=== PATIENT | female | born 1950 | race Caucasian/White ===

== ENCOUNTER 2022-12-21 10:43 | Observation (INO) ==
--- NOTE | 2022-11-23 10:37 | PAT Medication Instructions ---
Medication Instructions Date of Service November 23, 2022 Home Medications allopurinol 300 mg tablet 300 mg PO HS aspirin 81 mg tablet,delayed release (Enteric Coated Aspirin) 81 mg PO HS atorvastatin 20 mg tablet (Lipitor) 20 mg PO QAM bisoprolol fumarate 5 mg tablet 5 mg PO QAM calcipotriene 0.005 %-betamethasone 0.064 % topical foam (Enstilar) 1 applic topical DAILY cetirizine 10 mg tablet (Zyrtec) 10 mg PO HS clobetasol 0.05 % topical cream 1 applic topical DAILY fexofenadine 180 mg tablet 180 mg PO QAM hydroxychloroquine 200 mg tablet 200 mg PO QPM levothyroxine 88 mcg tablet 88 mcg PO QAM lisinopril 40 mg tablet 40 mg PO QPM magnesium oxide 400 mg PO QAM omeprazole 20 mg tablet,delayed release 20 mg PO QAM triamcinolone acetonide 0.1 % topical cream 1 applic topical DAILY triamterene 37.5 mg-hydrochlorothiazide 25 mg tablet 1 tab PO HS ASK your prescriber and surgeon aspirin 81 mg tablet,delayed release (Enteric Coated Aspirin) 81 mg PO HS hydroxychloroquine 200 mg tablet 200 mg PO QPM STOP taking 24 hours before surgery calcipotriene 0.005 %-betamethasone 0.064 % topical foam (Enstilar) 1 applic topical DAILY clobetasol 0.05 % topical cream 1 applic topical DAILY triamcinolone acetonide 0.1 % topical cream 1 applic topical DAILY DO NOT take the morning of surgery magnesium oxide 400 mg PO QAM fexofenadine 180 mg tablet 180 mg PO QAM Take morning of surgery With a small sip of water, OTHERWISE NOTHING TO EAT OR DRINK AFTER MIDNIGHT: atorvastatin 20 mg tablet (Lipitor) 20 mg PO QAM bisoprolol fumarate 5 mg tablet 5 mg PO QAM levothyroxine 88 mcg tablet 88 mcg PO QAM omeprazole 20 mg tablet,delayed release 20 mg PO QAM Take evening before surgery allopurinol 300 mg tablet 300 mg PO HS cetirizine 10 mg tablet (Zyrtec) 10 mg PO HS lisinopril 40 mg tablet 40 mg PO QPM triamterene 37.5 mg-hydrochlorothiazide 25 mg tablet 1 tab PO HS Other Notes If you have any questions please call us at [phone] or [phone] or [phone] or [phone]
--- NOTE | 2022-11-25 13:03 | Anesthesiology Consultation ---
Date of Service November 25, 2022 Assessment & Plan (1) Encounter for pre-operative examination: - will request carotid imaging and holter monitor [facility] office per pt. - cardiology clearance 11/21/22: "...low to intermediate cardiac risk..." - cardiology office visit 09/19/22: "...cardiac evaluation...nonprogressive functional class II shortness of breath and fatigue...increasing diaphoresis and also occasional weakness episodes with dizziness...echocardiogram re aortic stenosis, SOB. Carotid doppler. Holter monitor..." Chart Review Chart Review: Pending: Refer to Additional Notes / Consult section and Patient seen in Pre Admission Testing Teaching & Discussion Pre-Anesthesia Teaching/Discussion Notes: Instructed NPO after midnight before surgery, except medications with 15 cc of water. Medication instructions provided according to the PAT guidelines. History Surgery Operation Date: 12/21/22 10:15 Proposed Procedures p Right Total Shoulder Arthroplasty Excision of Loose Bodies, Biceps Tenodesis - Sean Amezquita MD Height/Weight Height: 5 ft 4 in Weight: 100.3 kg Allergies Allergy/AdvReac Type Severity Reaction Status Date / Time apremilast [From Otezla] Allergy Intermediate caused Verified 11/17/22 12:49 stomach ulcers aspartame Allergy Intermediate MIGRAINE, Verified 11/17/22 12:46 HIGH BP diphenhydramine Allergy Intermediate Hives Verified 11/17/22 12:49 [From Benadryl Allergy] latex Allergy Intermediate rash over Verified 11/17/22 12:49 trunk of body linda hose Allergy Intermediate rash over Uncoded 11/17/22 12:49 trunk of body Medications Home Medications Medication Instructions Recorded Confirmed Last Taken allopurinol 300 mg tablet 300 mg PO HS 11/17/22 11/17/22 Unknown aspirin 81 mg tablet,delayed 81 mg PO HS 11/17/22 11/17/22 Unknown release (Enteric Coated Aspirin) atorvastatin 20 mg tablet (Lipitor) 20 mg PO QAM 11/17/22 11/17/22 Unknown bisoprolol fumarate 5 mg tablet 5 mg PO QAM 11/17/22 11/17/22 Unknown calcipotriene 0.005 1 applic topical DAILY 11/17/22 11/17/22 Unknown %-betamethasone 0.064 % topical foam (Enstilar) cetirizine 10 mg tablet (Zyrtec) 10 mg PO HS 11/17/22 11/17/22 Unknown clobetasol 0.05 % topical cream 1 applic topical DAILY 11/17/22 11/17/22 Unknown fexofenadine 180 mg tablet 180 mg PO QAM 11/17/22 11/17/22 Unknown hydroxychloroquine 200 mg tablet 200 mg PO QPM 11/17/22 11/17/22 Unknown levothyroxine 88 mcg tablet 88 mcg PO QAM 11/17/22 11/17/22 Unknown lisinopril 40 mg tablet 40 mg PO QPM 11/17/22 11/17/22 Unknown magnesium oxide 400 mg PO QAM 11/17/22 11/17/22 Unknown omeprazole 20 mg tablet,delayed 20 mg PO QAM 11/17/22 11/17/22 Unknown release triamcinolone acetonide 0.1 % 1 applic topical DAILY 11/17/22 11/17/22 Unknown topical cream triamterene 37.5 1 tab PO HS 11/17/22 11/17/22 Unknown mg-hydrochlorothiazide 25 mg tablet cyclosporine 0.05 % eye drops in a drp 11/25/22 Unknown dropperette (Restasis) etodolac 400 mg tablet 400 mg PO Q8H PRN Pain 11/25/22 11/25/22 Unknown hydrocortisone 2.5 % topical 1 applic topical BID PRN psoriasis 11/25/22 11/25/22 Unknown ointment Past Medical History Medical History (Updated 11/25/22 @ 13:25 by Lakeshia Villagran PA-C) CAD (coronary artery disease) nonobstructive on 05/2022 cath Deafness in right ear Esophageal polyp s/p multiple EGDs with removal, last in 2021, pt states GI advised could have next EGD in 2023 GERD (gastroesophageal reflux disease) rare, controlled and stable per pt Gout 1+ yr ago History of benign breast biopsy History of COVID-2019--mild symptoms, resolved Hyperlipidemia Hypertension controlled, stable per pt Hypothyroidism Leaky heart valve per pt is very small--follows with Dr. Hayes Migraine stable per pt Nausea and vomiting after administration of anesthetic agent denies needing scop patch Psoriatic arthritis Sleep apnea CPAP-compliant Patient denies h/o stroke, seizures, heart attack, heart failure, DM, blood clots/DVTs or blood transfusions. Exercise / Class Metabolic Activity II 4-5 Yardwork/Stairs/Walk up hill (denies chest discomfort or shortness of breath with 1 FOS) Past Family History Family History Other No family history of adverse response to anesthesia Past Surgical History Surgical History (Updated 11/25/22 @ 13:18 by Lakeshia Villagran PA-C) History of abdominal surgery 2010 removal of large polyp History of bilateral cataract extraction 2008 History of brain surgery 2010 @ [facility]--acoustic neuroma and removal of nerve on right side by ear History of cardiac cath x2--2016 @ [facility]/2022 @ [facility]--no stents placed History of cholecystectomy 2016 History of colonoscopy History of esophagogastroduodenoscopy (EGD) multiple History of hernia repair 2014 History of tonsillectomy 1961 History of tooth extraction History of total hysterectomy with bilateral salpingo-oophorectomy (BSO) 1988 History of total right knee replacement (TKR) 2013 History of total thyroidectomy 2021 @ [facility]--multiple large goiters Past Anesthesia History No Hx of Anesthesia Complications and No Family Hx of Anesthesia Complications History of PONV No Hx of Motion Sickness and History of PONV (denies needing scop patch) Social History Smoking Status: Never smoker Do You Dip or Chew Tobacco: No Hx Alcohol Use: No Hx Substance Use: No substance use type: does not use Review of Systems Patient denies chest pain, shortness of breath, dyspnea on exertion, reflux, fever, chills, cough, wheezing, or palpitations. Physical Exam Vital Signs Vitals BP 123/74 P 57 TEMP 97.8 SP02 94% on RA RESP 18 Physical Patient resting comfortably in chair in no acute distress, alert and oriented, responding appropriately throughout visit Full cervical extension range of motion without pain TMD 3.5 finger breadths Mallampati Score 2 Dentition: upper partial, denies chipped or loose teeth, caps/crowns, implants or bridges Lungs: normal respiratory effort. Good air movement, clear throughout to auscultation, no adventitious breath sounds Cardiac: regular rate and rhythm, 2/6 systolic murmur Carotid arteries: negative bruit bilat Lab Results Anesthesia Preop Results Results Anesthesia Widget: WBC 6.41 K/ul (4.8-10.8) 11/25/22 Hgb 13.2 g/dl (12.0-16.0) 11/25/22 Hct 37.7 % (37.0-47.0) 11/25/22 Plt 217 K/uL (130-400) 11/25/22 Na 140 mmol/L (136-145) 11/25/22 K 4.0 mmol/L (3.5-5.1) 11/25/22 Cl 104 mmol/L (98-107) 11/25/22 CO2 30 mmol/L (21-32) 11/25/22 BUN 20 mg/dl (6-23) 11/25/22 Creat 0.91 mg/dl (0.6-1.2) 11/25/22 Glucose Level 81 mg/dl (70-99(Fasting)) 11/25/22 PT 11.1 Seconds (9.0-12.0) 11/25/22 PTT 26.6 Seconds (21.0-31.0) 11/25/22 INR 1.0 (0.9-1.1) 11/25/22 Urine Color Yellow 11/25/22 Urine Appearance Clear (Clear) 11/25/22 Urine pH 6.5 (4.5-7.5) 11/25/22 Urine Specific [place] 1.008 (1.000-1.030) 11/25/22 Urine Protein Negative (Negative) 11/25/22 Urine Glucose (UA) Negative (Negative) 11/25/22 Urine Ketones Negative (Negative) 11/25/22 Urine Blood Negative (Negative) 11/25/22 Urine Nitrite Negative (Negative) 11/25/22 Urine Bilirubin Negative (Negative) 11/25/22 Urine Urobilinogen Negative (Negative) 11/25/22 Urine Leukocyte Esterase Negative (Negative) 11/25/22 Blood Type A Positive 11/25/22 Antibody Screen NEGATIVE 11/25/22 Testing Electrocardiogram Date: 09/19/22 SR, rate 70 bpm (provider notation on EKG) Extensive anterior infarct Inferior infarct Low QRS voltage in precordial leads Chest X-Ray Date: 11/25/22 Mild cardiomegaly. Otherwise, no acute process within the chest Echocardiogram Date: 02/22/22 EF 60-65% Normal LV wall motion Mild cLVH Mild to moderate mitral regurgitation Mild mitral stenosis Grade II diastolic dysfunction Mild pulmonic regurgitation Stress Test Date: 04/13/22 Lateral wall ischemia Cardiac Catheterization Date: 05/20/22 Left main: minimal luminal irregularities LAD: minimal luminal irregularities LCx: minimal luminal irregularities RCA: 30% stenosis Nonobstructive epicardial coronary artery disease
--- NOTE | 2022-12-20 12:15 | History & Physical Report ---
Date of Service December 20, 2022 Assessment & Plan (1) Primary osteoarthritis, right shoulder: Plan: Treatment options discussed with patient. She has failed conservative measures and would like to proceed with surgery. Risks, benefits and alternatives to surgery including but not limited to infection, DVT, pain, stiffness, need for revision surgery, damage to blood vessels, damage to nerves, PE, , were discussed with the patient and they wish to proceed. Plan for right total shoulder arthroplasty, biceps tenodesis, excision loose bodies. Surgery scheduled for 12/21/[address] Amezquita at [facility]. All questions answered. Patient will follow up post op. History of Present Illness Chief Complaint: Right knee Primary Care Provider: Lily Dallas DO 72yo female with PMHx significant for HTN, KELLEE, hypothyroidism, CAD who presents with ongoing right shoulder pain. Pain is interfering with her daily activities. She has failed conservative measures and would like to proceed with surgery. Patient denies headaches, sweats, fevers, chills, double vision, blurred vision, cough, sore throat, dysphagia, chest pain, sob, wheezing, n/v/d/c, numbness, tingling, fatigue, urinary symptoms, mood disorders. ROS positive for right shoulder pain and stiffness. Allergies Allergy/AdvReac Type Severity Reaction Status Date / Time apremilast [From Otezla] Allergy Intermediate caused Verified 11/17/22 12:49 stomach ulcers aspartame Allergy Intermediate MIGRAINE, Verified 11/17/22 12:46 HIGH BP diphenhydramine Allergy Intermediate Hives Verified 11/17/22 12:49 [From Benadryl Allergy] latex Allergy Intermediate rash over Verified 11/17/22 12:49 trunk of body linda hose Allergy Intermediate rash over Uncoded 11/17/22 12:49 trunk of body Home Medications Medication Instructions Recorded Confirmed Type allopurinol 300 mg tablet 300 mg PO HS 11/17/22 11/17/22 History aspirin 81 mg tablet,delayed 81 mg PO HS 11/17/22 11/17/22 History release (Enteric Coated Aspirin) atorvastatin 20 mg tablet (Lipitor) 20 mg PO QAM 11/17/22 11/17/22 History bisoprolol fumarate 5 mg tablet 5 mg PO QAM 11/17/22 11/17/22 History calcipotriene 0.005 1 applic topical DAILY 11/17/22 11/17/22 History %-betamethasone 0.064 % topical foam (Enstilar) cetirizine 10 mg tablet (Zyrtec) 10 mg PO HS 11/17/22 11/17/22 History clobetasol 0.05 % topical cream 1 applic topical DAILY 11/17/22 11/17/22 History fexofenadine 180 mg tablet 180 mg PO QAM 11/17/22 11/17/22 History hydroxychloroquine 200 mg tablet 200 mg PO QPM 11/17/22 11/17/22 History levothyroxine 88 mcg tablet 88 mcg PO QAM 11/17/22 11/17/22 History lisinopril 40 mg tablet 40 mg PO QPM 11/17/22 11/17/22 History magnesium oxide 400 mg PO QAM 11/17/22 11/17/22 History omeprazole 20 mg tablet,delayed 20 mg PO QAM 11/17/22 11/17/22 History release triamcinolone acetonide 0.1 % 1 applic topical DAILY 11/17/22 11/17/22 History topical cream triamterene 37.5 1 tab PO HS 11/17/22 11/17/22 History mg-hydrochlorothiazide 25 mg tablet cyclosporine 0.05 % eye drops in a drp 11/25/22 History dropperette (Restasis) etodolac 400 mg tablet 400 mg PO Q8H PRN Pain 11/25/22 11/25/22 History hydrocortisone 2.5 % topical 1 applic topical BID PRN psoriasis 11/25/22 11/25/22 History ointment Past Med/Surg History Medical History (Updated 12/20/22 @ 12:28 by Terry Tran PA-C) GERD (gastroesophageal reflux disease) rare, controlled and stable per pt Esophageal polyp s/p multiple EGDs with removal, last in 2021, pt states GI advised could have next EGD in 2023 CAD (coronary artery disease) nonobstructive on 05/2022 cath Nausea and vomiting after administration of anesthetic agent denies needing scop patch History of benign breast biopsy Gout 1+ yr ago Psoriatic arthritis Hypothyroidism Deafness in right ear Migraine stable per pt Leaky heart valve per pt is very small--follows with Dr. Hayes Hypertension controlled, stable per pt Hyperlipidemia History of COVID-2019--mild symptoms, resolved Sleep apnea CPAP-compliant Surgical History (Updated 11/25/22 @ 13:18 by Lakeshia Villagran PA-C) History of total hysterectomy with bilateral salpingo-oophorectomy (BSO) 1988 History of total right knee replacement (TKR) 2013 History of colonoscopy History of esophagogastroduodenoscopy (EGD) multiple History of hernia repair 2015 History of cholecystectomy 2016 History of tooth extraction History of tonsillectomy 1961 History of total thyroidectomy 2021 @ [facility] [place], operated by [facility]--multiple large goiters History of bilateral cataract extraction 2008 History of abdominal surgery 2010 removal of large polyp History of brain surgery 2010 @ [facility]--acoustic neuroma and removal of nerve on right side by ear History of cardiac cath x2--2016 @ [facility]/2022 @ [facility]--no stents placed Family History Other No family history of adverse response to anesthesia Social History Smoking Status: Never smoker Second Hand Exposure: No; Do You Dip or Chew Tobacco: No; Tobacco Cessation Education Requested by Patient: No Hx Alcohol Use: No Hx Substance Use: No Preferred Language: Khmer Communication Ability: Effective Director Clinical Pharmacology Required: No Beliefs That Will Affect Care: None Current Living Situation: Spouse Other Information That Helps Us Care for You: No Feels Safe at Home: Yes Safety Concerns: Feels Safe At This Time Assistive Devices: CPAP, Denture - Upper and Glasses Assistive Devices Comment: partial upper Review of Systems All systems reviewed & are unremarkable except as noted in HPI & below Physical Exam Constitutional: well developed and well nourished; no acute distress Eyes: PERRL, conjunctivae normal, anicteric sclerae ENMT: external ear and nose normal, oropharynx normal Neck: trachea midline, no thyromegaly Respiratory: normal respiratory effort, lungs clear to auscultation Cardiovascular: RRR, no murmur, no edema Musculoskeletal: Right shoulder: Crepitation with ROM. Diffuse tenderness. Positive impingement signs. Active painful ROM. FF to 120 degrees, abduction to 80 degrees, ER to 30 degrees. Mild weakness with strength testing. Skin: no rashes, warm and dry Neurologic: patellar DTR's 2+ bilat, sensation intact Psychiatric: A+Ox3, euthymic affect Results & Data Diagnostic Findings Right shoulder radiographs demonstrate endstage osteoarthritis bone on bone GH joint. There is a large inferior osteophyte humeral head. Likely osteochondral loose bodies anteriorly. MRI demonstrates an intact rotator cuff
[~2022-12-21 10:43] MED LIST: ACETAMINOPHEN 500 MG TAB PO SCH; BUPIVACAINE 0.5 % 5 MG/1 ML PF 10ML VIAL ONE; CeleBREX 200 MG CAP PO SCH; DEXAMETHASONE SOD INJ 4 MG/ML VIAL ONE; FAMOTIDINE 20 MG TAB PO SCH; GABAPENTIN 300 MG CAP PO SCH; LIDOCAINE 2% 2 ML VIAL/AMP(20MG/ML) INFIL ONE; LR 15ML/HR IV SCH; LR 60ML/HR IV SCH; MIDAZOLAM HCL 1 MG/ML 2ML VIAL ONE; ONDANSETRON INJ 2 MG/ML 2 ML VIAL ONE; PROPOFOL IV EMULSION 10 MG/ML 20 ML VIAL IV ONE; ROCURONIUM BROMIDE 10 MG/ML 5 ML VIAL IV ONE; TRANEXAMIC ACID 1,000 MG **IV Intra-op IV SCH; TRANEXAMIC ACID 1,000 MG **IV Pre-op IV SCH; ceFAZolin 2000MG 2,000 MG/15 ML SYR IV SCH; dexAMETHasone 4 MG TAB PO SCH; fentaNYL citrate PF 100 MCG/2 ML VIAL ONE
[2022-12-21] MEDS ORDERED: EpINEphrine HCL INJ 1 MG/ML 1ML SYRINGE ONE (12:29)
--- NOTE | 2022-12-21 12:29 | History & Physical Bridge Note ---
Date of Service December 21, 2022 History & Physical Bridge Note I have examined the patient, reviewed the History & Physical and in the interval since the performance of the History & Physical I have noted the following changes of clinical significance: no changes noted
[2022-12-21] MEDS ORDERED: ATROPINE SULFATE 0.1 MG/ML 10ML SYR IV PRN (13:08)
[2022-12-21] MEDS ORDERED: ONDANSETRON INJ 2 MG/ML 2 ML VIAL IV PRN ×2 (13:08→16:50)
[2022-12-21] MEDS ORDERED: fentaNYL citrate PF 100 MCG/2 ML VIAL IV PRN (13:08)
[2022-12-21] MEDS ORDERED: HYDROmorphone INJ 2 MG/ML SYR/VIAL IV PRN (13:08)
[2022-12-21] MEDS ORDERED: PROMETHAZINE HCL 12.5 MG in SODIUM CHLORIDE 0.9% 50 ML IV PRN (13:08)
[2022-12-21] MEDS ORDERED: ePHEDrine sulfate 50 MG/ML AMP IV PRN (13:08)
[2022-12-21] MEDS ORDERED: ePHEDrine sulfate 50 MG/5 ML SYR ONE (13:17)
[2022-12-21] MEDS ORDERED: ROCURONIUM BROMIDE 10 MG/ML 5 ML VIAL IV ONE (13:53)
[2022-12-21] MEDS ORDERED: SUGAMMADEX SODIUM 200 MG/2 ML VIAL IV ONE (13:54)
--- NOTE | 2022-12-21 15:50 | Operative Report ---
Post Operative Report Pre & Post Diagnosis Operation Date: 12/21/22 12:35 Pre-Op Diagnosis: Right Shoulder Osteoarthritis Glenohumeral joint, multiple loose bodies, ruptured biceps tendon. Post-Op Diagnosis: Right Shoulder Osteoarthritis Glenohumeral joint, multiple loose bodies, ruptured biceps tendon. I identified the patient and participated in the time-out.: Yes Procedure Operation Date: 12/21/22 12:35 Actual Procedures p Right Total Shoulder Arthroplasty, Excision of Mulitple Loose Bodies(Right) - Sean Amezquita MD Surgeon Sean Amezquita MD Emergency Management Program Specialist Terry ANDREWS Estimated Blood Loss 50 Findings Consistent with Post-Op Diagnosis Specimens bone cut humeral head and loose bodies Drains 2 Hemovac Anesthesia Type General Regional Complications none Disposition Disposition: Recovery Room Indications 72-year-old female with chronic progressive osteoarthritis in her right shoulder. Radiographs demonstrate she has [id number] in the glenohumeral joint with bone loss and massive osteophytes with multiple loose bodies including loose bodies in the biceps tendon sheath. Chronic ruptured biceps tendon and intact rotator cuff per MRI CT scan including blueprint preoperative templating with custom PSI surgical guide Description of Procedure the patient was taken to the operating room and anesthetized under a general and regional block anesthesia. A towel roll was placed under the medial border of the scapula of the Right shoulder. The patient's head was placed on a foam headrest and protective eyewear was placed and the extremities were well padded. The arm was draped free in order to manipulate the shoulder as necessary. The shoulder exam demonstrated 0 external rotation, 80 degrees AB duction, 120 degrees forward flexion. She has moderate obesity of the Shoulder and arm. . The shoulder was sterilely prepped and draped in the usual sterile fashion. An anterior deltopectoral approach was performed. A longitudinal incision was made in the interval. The skin was incised sharply and subcutaneous tissues dissected down to the fascia. The cephalic vein was identified and retracted laterally with the deltoid. Any crossing veins were tied off with silk ties and divided. The clavipectoral fascia was divided at the lateral margin of the conjoined tendon and divided up to the level of the coracoacromial ligament which was preserved. The upper 1 cm of the pectoralis was released for inferior exposure. The biceps tendon findings demonstrated chronically ruptured biceps t endon with multiple large loose bodies in the biceps tendon sheath that were irregular in shape. These were all excised along with the scarred tenosynovium. . The rotator cuff tendon findings demonstrated Intact rotator cuff all tendon groups. Bulging rotator interval due to fluid collection and loose bodies there and inferior prominence due to the massive osteophyte underlying the subscapular is muscle . The circumflex vessels were identified and tied off with silk ties and divided laterally. The fibers and subscapularis were split longitudinally at the level of the circumflex vessels down to the capsule and then reflected off the inferior capsule using a Kitner elevator. The axillary nerve was identified with a tug test and protected with a blunt Amy retractor. The rotator interval was opened up and extended down to the glenoid. multiple loose bodies removed from the interval and the capsule inner surface of the subscapularis tendon. The subscapularis tendon was taken down with a trans- tendinous incision leaving a cuff of tissue for repair on the lesser tuberosity. The incision was carried down through the tendon and the capsule and a #1 Vicryl suture was placed into the free end of the subscapularis tendon. The capsule was subperiosteally dissected off the inferior neck of the humerus exposing the humeral osteophytes which demonstrated Massive irregular osteoph ytes with multiple loose bodies. Humeral head was flattened with eburnated bone completely no articular cartilage and some bone loss. The osteophytes were excised with an artist chisel and a rongeur Along with more loose bodies.. The capsular release along the inferior neck of the humerus was completed. The humerus was then retracted posterior to the glenoid with a Fukuda retractor. The remainder of the biceps tendon and labrum were resected. The glenoid findings demonstrated Type A concentric wear pattern with some bone loss. Complete eburnation of the glenoid with no articular cartilage remaining and degenerative labrum and large calcified posterior superior glenoid labrum calcifications and multiple loose bodies in the capsular tissue adjacent to the labrum. The labrum was resected along with the loose bodies and I did an anterior inferior and posterior inferior release with electrocautery on bone and a Albright elevator with the axillary nerve continuing to be protected with the blunt Hohmann retractor inferiorly. the large calcified posterior superior labrum fragments were removed. When the releases were completed and the humeral head was exposed with some extension and external rotation and in anatomic head cut was made using the oscillating saw. The Tornier ascend flex PTC standard stem total shoulder arthroplasty was used including the Cortiloc glenoid compo nent. Attention was first taken to preparation of the humeral shaft. A centralizing awl was used followed by broaches up to the appropriate size. The trial broach was left in place and a cut protector was placed. The humerus was then retracted posterior to the glenoid using a Bankart retractor anteriorly and blunt Amy and posterior Tornier glenoid retractor. the custom guide was positioned and the central Smooth pin was placed. The glenoid reamer was used over the pin for the chosen small 40 radius implant. the central drill widened and the guide for the 3 peripheral peg holes was placed in the peg holes were drilled and a trial component was placed with a tight fit. The trial was removed and the glenoid was irrigated with pulsatile lavage antibiotic solution and the drill holes were dried and packed with epinephrine-soaked tampons for hemostasis. The Palacos G cement was vacuum mixed. The final component, 40 radius Cortiloc small polyethylene glenoid component was cemented into position and held in position with pressure until the cement cured. A humeral head trial was placed. A trial reduction was performed and the shoulder was stable. The trial was removed and the humerus and canal were irrigated with saline solution . 3 drill holes were made into the hard bone in the bicipital groove lateral to the lesser tuberosity and 3 #5 FiberWire transosseous sutures were placed for repair of the subscapularis with Artem -Daniel suture technique. After further irrigation of the canal and the final components were assembled. The final components were the 50 x 19 high offset humeral head assembled to the 4 C standard PTC ascend flex stem . The implant was then impacted into the humerus with a tight press-fit. The humerus was reduced to the glenoid and stability verified. The subscapularis was repaired with the #5 FiberWire sutures in a Artem-Daniel suture technique and lateral row fixation with [id number] #2 FiberWire in the soft tissue. The rotator interval was closed and maximal external rotation. The pectoralis was then closed with [id number] #2 FiberWire suture. 2 Hemovac drains were placed. The deltopectoral interval was closed with [id number] #1 Vicryl sutures. The subcutaneous tissues were closed with interrupted 2-0 Vicryl and the skin was closed with dalia and a sterile dressing was applied. The patient tolerated the procedure well. Terry ANDREWS, My physician senior administrative assistant, assisted in soft tissue retraction instrument management suture management and assisted in the subcutaneous and skin closure and will participate in the postoperative care the patient. I attest to the content of the Intraoperative Record and any orders documented therein. Any exceptions are noted below.
--- NOTE | 2022-12-21 16:31 | XRay Report ---
XR shoulder RT min 2V routine HISTORY: 72 years-old Female Post shoulder surgery COMPARISON: Chest 11/25/2022 TECHNIQUE: 2 views of the right shoulder FINDINGS: Satisfactory alignment of the shoulder arthroplasty. Overlying skin dalia with expected postoperati ve soft tissue swelling and deep tissue air. Surgical drainage catheter. No acute fracture, dislocati on or unexpected opaque foreign body. The lung wells appear clear. IMPRESSION: Right shoulder arthroplasty with expected postoperative changes. ACT 112: Negative or not required by law. The above report was generated using voice recognition software. It may contain grammatical, syntax o r spelling errors. Electronically signed by: Carlos Root M.D. 12/21/2022 4:30 PM
--- NOTE | 2022-12-21 16:37 | Anesthesiology Progress Note ---
Date of Service December 21, 2022 Anesthesia Post Procedure Vital Signs Vital Signs: Temp Pulse Pulse Resp BP Pulse Ox O2 Del Method 12/21/22 16:30 36.5 C 72 20 144/62 H 94 Nasal Cannula 12/21/22 16:20 73 20 147/74 H 95 Nasal Cannula 12/21/22 16:10 76 20 154/83 H 94 Oxymask 12/21/22 16:00 76 20 155/65 H 94 Oxymask 12/21/22 15:50 36.1 C L 79 18 182/89 H 94 Oxymask 12/21/22 11:12 36.5 C 63 18 156/79 H 98 Room Air O2 Flow Rate 12/21/22 16:30 3 12/21/22 16:20 4 12/21/22 16:10 6 12/21/22 16:00 6 12/21/22 15:50 6 12/21/22 11:12 Pain Intensity Right Shoulder: Pain Intensity: 3 Transfer of Care Handoff Completed per policy Notes Mental Status: alert / awake / arousable Patient Amnestic to Procedure: Yes Nausea / Vomiting: adequately controlled Pain: adequately controlled Airway Patency, RR, SpO2: stable & adequate BP & HR: stable & adequate Hydration State: stable & adequate Anesthetic Complications: no major complications apparent
[2022-12-21] MEDS ORDERED: MAGNESIUM HYDROXIDE SUSP 30 ML UDC PO PRN (16:50)
[2022-12-21] MEDS ORDERED: HYDROmorphone INJ 0.5 MG/0.5 ML SYR IV PRN (16:50)
[2022-12-21] MEDS ORDERED: SODIUM CHLORIDE 0.9% 1,000 ML IV SCH (16:50)
[2022-12-21] MEDS ORDERED: oxyCODONE HCL IR 5 MG TAB (IMMEDIATE RELEASE) PO PRN (16:50)
[2022-12-21] MEDS ORDERED: NALOXONE HCL 0.4 MG/1 ML VIAL/CARP IV PRN (16:50)
[2022-12-21] MEDS ORDERED: bisacodyL 10 MG SUPP PR PRN (16:50)
[2022-12-21] MEDS ORDERED: METOCLOPRAMIDE HCL INJ 5 MG/ML 2 ML VIAL IV PRN (16:50)
[2022-12-21] MEDS ORDERED: ARTIFICIAL TEARS OP PRN (16:56)
--- NOTE | 2022-12-21 17:19 | Hospitalist Consultation ---
Date of Consultation December 21, 2022 Assessment & Plan (1) History of arthroplasty of right shoulder: S/p right total shoulder arthroplasty with Dr. Sean Amezquita at 1235 on 12/21/22 Currently stable Agree with a.m. CBC, BMP tomorrow morning, we will follow Patient is not having any right shoulder pain at time of consult; no new complaint Perioperative antibiotics, pain control, DVT PPx, and IV fluids per the primary team (2) Hypertension: BP reached 189/92 postop, but is currently 129/74 Agree with holding BP medications tonight and restarting tomorrow night Okay to continue lisinopril, Maxide (3) GERD (gastroesophageal reflux disease): Continue pantoprazole (4) Hyperlipidemia: Continue atorvastatin (5) Hypothyroidism: Continue levothyroxine (6) Psoriatic arthritis: Continue Plaquenil, hydrocortisone cream (7) Sleep apnea: Patient uses a CPAP at night; brought her own CPAP from home Placed order allowing for her to use home CPAP Plan Agree with medical management: MedSurg Regular diet VTE PPx: SCDs, TEDs Thank you for allowing us to participate in the care of this patient, please poncho ch out with any questions or concerns Supervising Physician Co-Signing Physician Notes I personally saw and examined the patient. I verified all nassar points and agree with Wallace Sanchez PA-C with the following exceptions and/or additions: 72 year old female POD#0 right shoulder arthroplasty. EBL 50ml. No concerns or questions from the patient. O/E HS RRR, MATT LUSB, Chest CTAB, Abdo SNT A/P VTE/Pain/bowel management per primary orthopedic team. HTN - Holding BP meds POD#0 and re-introduce tomorrow as her BP allows as above Systolic murmur - pt reports this is not new History of Present Illness Reason for Consultation: Medical management Requesting Physician: Sean Amezquita MD Attending Physician: Sean Amezquita MD History of Present Illness Pamela is a 72-year-old female with PMH of right shoulder OA, gout, esophageal polyps, CAD, sleep apnea, HLD, GERD, hypothyroidism, and HTN. She presented for a total right shoulder arthroplasty with Dr. Sean Marsh on 12/21. Per operative report, EBL was listed as 50 cc, anesthesia was listed as general regional, 2 Hemovac drains were placed, and there were no reported intraoperative complications. Per review of vitals, the patient exhibited hypertension peaking at 182/89 postop, which has resolved; all other vitals hemodynamically stable. Took levothyroxine, Prilosec, and bisoprolol this morning, but no other medications. She has not been taking aspirin since last Monday, per surgical instructions. Patient is in good spirits postop. She endorses 1/10 right arm pain, with occasional numbness and tingling going down the right arm into the hand, but declines pain/nausea medication. She is eating and drinking okay. Some d ifficulty eating due to the fact she is right-handed. She has no new concerns at this time. ROS: Patient endorses mild chest pressure, right shoulder/back pressure, and numbness and tingling going down the right arm. Patient denies fever, chills, sweating, sore throat, CP, SOB, pleuritic CP, abdominal pain, N/V/D, numbness/tingling/pain in the legs. Allergies Allergy/AdvReac Type Severity Reaction Status Date / Time apremilast [From Otezla] Allergy Intermediate caused Verified 12/21/22 11:19 stomach ulcers aspartame Allergy Intermediate MIGRAINE, Verified 12/21/22 11:19 HIGH BP diphenhydramine Allergy Intermediate Hives Verified 12/21/22 11:19 [From Benadryl Allergy] latex Allergy Intermediate rash over Verified 12/21/22 11:19 trunk of body linda hose Allergy Intermediate rash over Uncoded 12/21/22 11:19 trunk of body Home Medications Medication Instructions Recorded Confirmed Type allopurinol 300 mg tablet 300 mg PO HS 11/17/22 12/21/22 History aspirin 81 mg tablet,delayed 81 mg PO HS 11/17/22 12/21/22 History release (Enteric Coated Aspirin) atorvastatin 20 mg tablet (Lipitor) 20 mg PO DAILY 11/17/22 12/21/22 History bisoprolol fumarate 5 mg tablet 5 mg PO QAM 11/17/22 12/21/22 History calcipotriene 0.005 1 applic topical DAILY PRN Other 11/17/22 12/21/22 History %-betamethasone 0.064 % topical foam (Enstilar) cetirizine 10 mg tablet (Zyrtec) 10 mg PO HS 11/17/22 12/21/22 History clobetasol 0.05 % topical cream 1 applic topical DAILY PRN Other 11/17/22 12/21/22 History fexofenadine 180 mg tablet 180 mg PO QAM 11/17/22 12/21/22 History levothyroxine 88 mcg tablet 88 mcg PO QAM 11/17/22 12/21/22 History lisinopril 40 mg tablet 40 mg PO QPM 11/17/22 12/21/22 History magnesium oxide 400 mg PO QAM 11/17/22 12/21/22 History omeprazole 20 mg tablet,delayed 20 mg PO QAM 11/17/22 12/21/22 History release triamcinolone acetonide 0.1 % 1 applic topical DAILY 11/17/22 12/21/22 History topical cream (Triderm) triamterene 37.5 1 tab PO Q24H 11/17/22 12/21/22 History mg-hydrochlorothiazide 25 mg tablet (Maxzide-25mg) cyclosporine 0.05 % eye drops in a 1 drp OPB BID 11/25/22 12/21/22 History dropperette (Restasis) hydrocortisone 2.5 % topical 1 applic topical BID PRN psoriasis 11/25/22 12/21/22 History ointment acetaminophen 500 mg tablet 1,000 mg (2 x 500 mg) PO Q8 #60 12/22/22 Rx (Tylenol Extra Strength) tabs oxycodone 5 mg tablet 5 - 10 mg (1 - 2 x 5 mg) PO 12/22/22 Rx .Q4h-6h PRN pain #30 tabs Patient History Medical History (Updated 12/21/22 @ 18:13 by Wallace Sanchez PA-C) Psoriasis GERD (gastroesophageal reflux disease) rare, controlled and stable per pt Esophageal polyp s/p multiple EGDs with removal, last in 2021, pt states GI advised could have next EGD in 2023 CAD (coronary artery disease) nonobstructive on 05/2022 cath Nausea and vomiting after administration of anesthetic agent denies needing scop patch History of benign breast biopsy Gout 1+ yr ago Psoriatic arthritis Hypothyroidism Deafness in right ear Migraine stable per pt Leaky heart valve per pt is very small--follows with Dr. Hayes Hypertension controlled, stable per pt Hyperlipidemia History of COVID-2019--mild symptoms, resolved Sleep apnea CPAP-compliant Surgical History (Updated 12/21/22 @ 17:26 by Wallace Sanchez PA-C) History of total hysterectomy with bilateral salpingo-oophorectomy (BSO) 1988 History of total right knee replacement (TKR) 2013 History of colonoscopy History of esophagogastroduodenoscopy (EGD) multiple History of hernia repair 2015 History of cholecystectomy 2016 History of tooth extraction History of tonsillectomy 1961 History of total thyroidectomy 2021 @ [facility]--multiple large goiters History of bilateral cataract extraction 2008 History of abdominal surgery 2010 removal of large polyp History of brain surgery 2010 @ [facility]--acoustic neuroma and removal of nerve on right side by ear History of cardiac cath x2--[facility] @ [facility]--no stents placed Family History Other No family history of adverse response to anesthesia Social History Smoking Status: Never smoker Second Hand Exposure: No; Do You Dip or Chew Tobacco: No; Hx Alcohol Use: No Hx Substance Use: No Preferred Language: [place]guill[place] Communication Ability: Effective Pharmacy Delivery Driver Required: No Beliefs That Will Affect Care: None Current Living Situation: Spouse Feels Safe at Home: Yes Assistive Devices: CPAP Review of Systems Review of Systems: See HPI above Physical Exam Physical Exam: General: no acute distress; non-toxic appearing; well-nourished; cooperative; pleasant affect HEENT: normocephalic, atraumatic; no scleral icterus; PERRLA w/ EOMs intact; moist mucus membrane; vision and hearing grossly intact Neck: supple; no lymphadenopathy; trachea midline Skin: warm, dry without signs of tenting; no cyanosis; no rashes, bruising, lesions, or erythema noted; no signs of bruising on the right upper back, NTP CV: chest wall NTP; RRR; S1/S2 normal; no murmurs/rubs/gallops; pulses intact and symmetric at radial, DP, and PT Lungs: no acute respiratory distress; symmetrical chest wall expansion; clear breath sounds across all lung wells w/o adventitious sounds; no wheezing ABD: Soft, NTP; BS present; no rebound/guarding; no ascites; no distention RUE: Dressing on right shoulder without signs of bleeding, infection, erythema; right hand is neurovascularly intact; patient demonstrates active ROM of fingers, right wrist; radial pulse is weak, but present; 4/5 perinatal director strength; sensation intact (assessed via light touch in the fingers, forearm) LUE: +5/5 perinatal director strength; sensation intact MSK: no tics or fasciculations; no edema noted in the LEs b/l; patient demonstra karin ability to wiggle toes B/L Neuro: A&Ox3; normal mood and affect; fluent speech; no focal deficits; sensation grossly intact Results & Data Results & Data Vital Signs (Past 12 Hours) Vital Signs Temp Pulse Pulse Pulse Resp BP Pulse Ox 12/21/22 17:17 36.5 C 70 18 137/76 95 12/21/22 16:51 36.7 C 70 18 143/77 H 93 12/21/22 16:30 36.5 C 72 20 144/62 H 94 12/21/22 16:20 73 20 147/74 H 95 12/21/22 16:10 76 20 154/83 H 94 12/21/22 16:00 76 20 155/65 H 94 12/21/22 15:50 36.1 C L 79 18 182/89 H 94 12/21/22 11:12 36.5 C 63 18 156/79 H 98 O2 Del Method O2 Flow Rate 12/21/22 17:17 Nasal Cannula 3 12/21/22 16:51 Nasal Cannula 3 12/21/22 16:30 Nasal Cannula 3 12/21/22 16:20 Nasal Cannula 4 12/21/22 16:10 Oxymask 6 12/21/22 16:00 Oxymask 6 12/21/22 15:50 Oxymask 6 12/21/22 11:12 Room Air Diagnostic Findings Shoulder X-Ray 12/21/22 15:49 XR shoulder RT min 2V routine HISTORY: 72 years-old Female Post shoulder surgery COMPARISON: Chest 11/25/2022 TECHNIQUE: 2 views of the right shoulder FINDINGS: Satisfactory alignment of the shoulder arthroplasty. Overlying skin dalia with expected postoperative soft tissue swelling and deep tissue air. Surgical drainage catheter. No acute fracture, dislocation or unexpected opaque foreign body. The lung wells appear clear. IMPRESSION: Right shoulder arthroplasty with expected postoperative changes. ACT 112: Negative or not required by law. The above report was generated using voice recognition software. It may contain grammatical, syntax or spelling errors. Electronically signed by: Carlos Root M.D. 12/21/2022 4:30 PM PG Care Time/CCT Total # of Minutes Spent Total Time Spent with Patient: Total time spent is greater than 50% in coordination of care (as documented) at patient's floor/unit and/or counseling patient: [place] [address] IN/OBS CONSULT LVL 3,45M Patient Type New Medical Decision Making Low Complexity Diagnoses History of arthroplasty of right shoulder Z96.611 Hypertension I10 GERD (gastroesophageal reflux disease) K21.9 Hyperlipidemia E78.5 Hypothyroidism E03.9 Psoriatic arthritis L40.50 Sleep apnea G47.30
[2022-12-21] MEDS: DOCUSATE SODIUM 100 MG CAP PO SCH (20:55)
[2022-12-21] MEDS ORDERED: SENNA 8.6 MG TAB PO SCH (21:00)
[2022-12-21] MEDS: ACETAMINOPHEN 500 MG TAB PO SCH (21:00)
[2022-12-21] MEDS: ceFAZolin 2000MG 2,000 MG/15 ML SYR IV SCH (21:00)
[2022-12-21] MEDS ORDERED: CETIRIZINE HCL 10 MG TABLET PO SCH (21:00)
[2022-12-21] MEDS ORDERED: allopurinoL 300 MG TAB PO SCH (21:00)
[2022-12-22] MEDS: ceFAZolin 2000MG 2,000 MG/15 ML SYR IV SCH (05:50)
[2022-12-22] MEDS: ACETAMINOPHEN 500 MG TAB PO SCH (05:50)
[2022-12-22] MEDS ORDERED: LEVOTHYROXINE SODIUM 88 MCG TABLET PO SCH (06:30)
--- NOTE | 2022-12-22 06:58 | Orthopedic Progress Note ---
Date of Service December 22, 2022 Assessment & Plan (1) Primary osteoarthritis, right shoulder: Plan: Postop day 1 right total shoulder arthroplasty -PT/OT: TSA protocol. No active motion of the shoulder. -A.m. labs are pending -DVT prophylaxis: SCDs, aspirin 81 mg daily -Pain management as written -Discharge planning: Plan on discharge home with plans on attending outpatient therapy. Plan on discharge home today as long as continues to remain stable. Admission and Anticipated Discharge Date Admission Date: December 21, 2022 Subjective Patient is postop day #1 right total shoulder. She is doing well this morning. Minimal pain. No current complaints. Denies chest pain, shortness of breath, nausea/vomiting/diarrhea, headaches or dizziness. Review of Systems Review of Systems: All systems reviewed & are unremarkable except as noted in Subjective Physical Exam Physical Exam: Right shoulder: Sling is intact. Dressing is clean, dry, intact. Fingers are mobile. Does have weakness with wrist extension and decreased thumb motion with numbness in her thumb secondary to nerve block. Distally neurovascular status and sensation is otherwise intact. Constitutional: WD/WN, vitals as above Results & Data Vital Signs (Past 12 Hours) Vital Signs Temp Pulse Resp BP Pulse Ox O2 Del Method 12/22/22 03:35 36.8 C 73 16 105/60 93 Room Air 12/21/22 22:40 36.9 C 73 20 107/69 93 Room Air 12/21/22 19:26 36.9 C 80 16 129/80 95 Room Air Diagnostic Findings XR shoulder RT min 2V routine HISTORY: 72 years-old Female Post shoulder surgery COMPARISON: Chest 11/25/2022 TECHNIQUE: 2 views of the right shoulder FINDINGS: Satisfactory alignment of the shoulder arthroplasty. Overlying skin dalia with expected postoperative soft tissue swelling and deep tissue air. Surgical drainage catheter. No acute fracture, dislocation or unexpected opaque foreign body. The lung wells appear clear. IMPRESSION: Right shoulder arthroplasty with expected postoperative changes.
[2022-12-22 07:19] LABS: Hematocrit (blood only) 33.9 % (37.0-47.0); Hemoglobin 11.2 g/dl (12.0-16.0); Immature Granulocytes # (auto) 0.07 K/uL (0.01-0.20); Immature Granulocytes % (auto) 0.6 %; Lymphocytes # (auto) 1.12 K/uL (1.20-3.40); Lymphocytes % (auto) 9.9 %; Mean Corpuscular Hemoglobin 32.5 pg (25.0-34.0); Mean Corpuscular Volume 98.3 fL (80.0-100.0); Mean Platelet Volume 11.9 fL (9.4-12.4); Monocytes # (auto) 0.57 K/uL (0.11-0.59); Neutrophils # (auto) 9.59 K/uL (1.40-6.50); Neutrophils % (auto) 84.5 %; Platelet Count 184 K/uL (130-400); RDW Coefficient of Variation 12.9 % (11.5-14.5); RDW Standard Deviation 45.9 fL (36.4-46.3); Red Blood Count 3.45 M/uL (4.20-5.40); White Blood Count 11.35 K/ul (4.8-10.8)
[2022-12-22 07:33] LABS: BUN Creatinine Ratio 21.6 (10-20); Calcium 8.9 mg/dl (8.6-10.3); Creatinine Clr Calc Pharmacy 64.5 ml/min; Est GFR (Non-African American) 64.7 ml/min; Potassium 3.8 mmol/L (3.5-5.1)
[2022-12-22] MEDS: DOCUSATE SODIUM 100 MG CAP PO SCH (08:15)
--- NOTE | 2022-12-22 08:35 | Hospitalist Progress Note ---
Date of Service December 22, 2022 Assessment & Plan (1) History of arthroplasty of right shoulder: Plan: S/p right total shoulder arthroplasty with Dr. Sean Amezquita at 1235 on 12/21/22. EBL 50cc WBC elevation likely 2nd to steroids w/ surgery, afebrile Hgb 13.2--> 11.2, acute blood loss anemia from surgery as well as dilutional aspect from IVF suspected Pain control/bowel regimen/therapy evals per primary service Anticipating discharge today (2) Hypertension: Plan: BP reached 189/92 postop, but 129/74 on repeat last evening and PM lisinopril was held BP this morning 104/64 and maxide to resume for this afternoon as long as BPs stable, lisinopril to resume tonight at discharge (3) GERD (gastroesophageal reflux disease): Plan: Continue pantoprazole (4) Hyperlipidemia: Plan: Continue atorvastatin (5) Hypothyroidism: Plan: Continue levothyroxine (6) Psoriatic arthritis: Plan: Continue Plaquenil, hydrocortisone cream (7) Sleep apnea: Plan: Patient uses a CPAP at night; brought her own CPAP from home Placed order allowing for her to use home CPAP Plan Thank you for allowing hospitalist service to participate in the care of Mrs Juares. Hospitalist service will sign off at this time. Please call with any questions/concerns. Admission and Anticipated Discharge Date Admission Date: December 21, 2022 Supervising Physician Co-Signing Physician Notes The patient was not seen by me. The chart was reviewed. Case discussed with DARRYL Queen. Agree with assessment and plan Subjective Evaluated around 10am, sitting up in chair, in room. Denies pain at present, some discomfort w/ movements but overall well controlled. Anticipating discharge and hemovac removal. Denies fever/chills, chest pain at present. Had a little shortness of breath in bed this morning but resolved since sitting up in the chair/deep breathing. Discussed would continue to use incentive spirometer/prevention of pneumonia. Questions/concerns addressed at this time. Physical Exam 2 Physical Exam: General: WD/WN obese female sitting up in recliner, in room NAD HEENT: head normocephalic, atraumatic, mmm, trachea midline, thick neck Resp; CTA, slightly diminished in the bases, no w/c/r, on room air CV: RRR, no significant m/r/g, no calf pain, pulses palpable GI: +BS, obese, soft/NT : no garcia MSK/Neuro: dressing to RIGHT shoulder c/d/i, minimally tender to palpation, hemovac w/ bloody drainage noted, sweatband separator strength/sensation intact (slightly decreased sweatband separator strength on the right compared to the left), pulses palpable Psych: AOx3, cooperative with exam Results & Data Results & Data Vital Signs (Past 12 Hours) Vital Signs Temp Pulse Resp BP Pulse Ox O2 Del Method 12/22/22 07:07 36.8 C 69 17 104/64 91 Room Air 12/22/22 03:35 36.8 C 73 16 105/60 93 Room Air 12/21/22 22:40 36.9 C 73 20 107/69 93 Room Air Laboratory Results 12/22/22 06:31 12/22/22 06:31 Diagnostic Findings Shoulder X-Ray 12/21/22 15:49 XR shoulder RT min 2V routine HISTORY: 72 years-old Female Post shoulder surgery COMPARISON: Chest 11/25/2022 TECHNIQUE: 2 views of the right shoulder FINDINGS: Satisfactory alignment of the shoulder arthroplasty. Overlying skin dalia with expected postoperative soft tissue swelling and deep tissue air. Surgical drainage catheter. No acute fracture, dislocation or unexpected opaque foreign body. The lung wells appear clear. IMPRESSION: Right shoulder arthroplasty with expected postoperative changes. ACT 112: Negative or not required by law. The above report was generated using voice recognition software. It may contain grammatical, syntax or spelling errors. Electronically signed by: Carlos Root M.D. 12/21/2022 4:30 PM PG Care Time/CCT Total # of Minutes Spent Total Time Spent with Patient: Total time spent is greater than 50% in coordination of care (as documented) at patient's floor/unit and/or counseling patient: Coding Level of Care Code 63784 SUB INP/OBS CARE 03/02MIN Diagnoses History of arthroplasty of right shoulder Z96.611 Hypertension I10 GERD (gastroesophageal reflux disease) K21.9 Hyperlipidemia E78.5 Hypothyroidism E03.9 Psoriatic arthritis L40.50 Sleep apnea G47.30
[2022-12-22] MEDS ORDERED: MULTIVITAMIN TAB PO SCH (09:00)
[2022-12-22] MEDS ORDERED: PANTOprazole 40 MG TAB PO SCH (09:00)
[2022-12-22] MEDS ORDERED: ATORVASTATIN 20 MG TAB PO SCH (09:00)
[2022-12-22] MEDS ORDERED: BISOPROLOL FUMARATE 5 MG TAB PO SCH (09:00)
[2022-12-22] MEDS ORDERED: MAGNESIUM OXIDE 400 MG TAB PO SCH (09:00)
[2022-12-22] MEDS ORDERED: FEXOFENADINE HCL 180 MG TAB PO SCH (09:00)
[2022-12-22] MEDS ORDERED: TRIAMTERENE/HCTZ 37.5/25MG TAB PO SCH ×2 (12:00→21:00)
[2022-12-22] MEDS ORDERED: lisinopril 40 MG TAB PO SCH (21:00)
[2022-12-22] MEDS ORDERED: ASPIRIN 81 MG ECTAB PO SCH (21:00)
--- NOTE | 2022-12-24 08:06 | Discharge Summary ---
Date of Service December 24, 2022 Admission HPI Per Admitting Provider 72yo female with PMHx significant for HTN, KELLEE, hypothyroidism, CAD who presents with ongoing right shoulder pain. Pain is interfering with her daily activities. She has failed conservative measures and would like to proceed with surgery. Patient denies headaches, sweats, fevers, chills, double vision, blurred vision, cough, sore throat, dysphagia, chest pain, sob, wheezing, n/v/d/c, numbness, tingling, fatigue, urinary symptoms, mood disorders. ROS positive for right shoulder pain and stiffness. Admission Exam Per Admitting Provider Constitutional: well developed and well nourished; no acute distress Eyes: PERRL, conjunctivae normal, anicteric sclerae ENMT: external ear and nose normal, oropharynx normal Neck: trachea midline, no thyromegaly Respiratory: normal respiratory effort, lungs clear to auscultation Cardiovascular: RRR, no murmur, no edema Musculoskeletal: Right shoulder: Crepitation with ROM. Diffuse tenderness. Positive impingement signs. Active painful ROM. FF to 120 degrees, abduction to 80 degrees, ER to 30 degrees. Mild weakness with strength testing. Skin: no rashes, warm and dry Neurologic: patellar DTR's 2+ bilat, sensation intact Psychiatric: A+Ox3, euthymic affect Principal Diagnosis right shoulder osteoarthritis Discharge Exam Right shoulder: Sling is intact. Dressing is clean, dry, intact. Fingers are mobile. Does have weakness with wrist extension and decreased thumb motion with numbness in her thumb secondary to nerve block. Distally neurovascular status and sensation is otherwise intact. Discharge Data Allergies Allergy/AdvReac Type Severity Reaction Status Date / Time apremilast [From Otezla] Allergy Intermediate caused Verified 12/21/22 11:19 stomach ulcers aspartame Allergy Intermediate MIGRAINE, Verified 12/21/22 11:19 HIGH BP diphenhydramine Allergy Intermediate Hives Verified 12/21/22 11:19 [From Benadryl Allergy] latex Allergy Intermediate rash over Verified 12/21/22 11:19 trunk of body linda hose Allergy Intermediate rash over Uncoded 12/21/22 11:19 trunk of body Consultations 12/19/22 11:39 Consult Hospitalist Routine Procedures Performed Operation Date: 12/21/22 12:35 Actual Procedures p Right Total Shoulder Arthroplasty, Excision of Mulitple Loose Bodies(Right) - Sean J Rogusky, MD Ordered Studies 12/21/22 05:00 US - OR guided needle placemen Routine Hospital Course (1) Primary osteoarthritis, right shoulder: Postop day 1 right total shoulder arthroplasty -PT/OT: TSA protocol. No active motion of the shoulder. -A.m. labs are pending -DVT prophylaxis: SCDs, aspirin 81 mg daily -Pain management as written -Discharge planning: Plan on discharge home with plans on attending outpatient therapy. Plan on discharge home today as long as continues to remain stable. Lab Results 12/22/22 Range/Units 06:31 WBC 11.35 H (4.8-10.8) K/ul RBC 3.45 L (4.20-5.40) M/uL Hgb 11.2 L (12.0-16.0) g/dl Hct 33.9 L (37.0-47.0) % MCV 98.3 (80.0-100.0) fL MCH 32.5 (25.0-34.0) pg MCHC 33.0 (32.0-36.0) g/dL RDW Std Deviation 45.9 (36.4-46.3) fL RDW Coeff of Itzel 12.9 (11.5-14.5) % Plt Count 184 (130-400) K/uL MPV 11.9 (9.4-12.4) fL Immature Gran % (Auto) 0.6 % Neut % (Auto) 84.5 % Lymph % (Auto) 9.9 % [place] % (Auto) 5.0 % Eos % (Auto) 0.0 % Baso % (Auto) 0.0 % Neut # (Auto) 9.59 H (1.40-6.50) K/uL Lymph # (Auto) 1.12 L (1.20-3.40) K/uL [place] # (Auto) 0.57 (0.11-0.59) K/uL Eos # (Auto) 0.00 (0.00-0.50) K/uL Baso # (Auto) 0.00 (0.00-0.20) K/uL Immature Gran # (Auto) 0.07 (0.01-0.20) K/uL Sodium 142 (136-145) mmol/L Potassium 3.8 (3.5-5.1) mmol/L Chloride 106 (98-107) mmol/L Carbon Dioxide 28 (21-32) mmol/L Anion Gap 8 (3-11) BUN 19 (6-23) mg/dl Creatinine 0.88 (0.6-1.2) mg/dl Est Cr Clr Drug Dosing 64.5 ml/min Est GFR ( Amer) 75.0 ml/min Est GFR (Non-Af Amer) 64.7 ml/min BUN/Creatinine Ratio 21.6 H (10-20) Glucose 142 H (70-99(Fasting)) mg/dl Calcium 8.9 (8.6-10.3) mg/dl Total Time Total Time Spent Total Time Spent (In Minutes): 20 Discharge Plan Discharge Items Patient Disposition: Home - Self-Care Reason For Visit: POST OP Discharge Diagnosis: Right shoulder osteoarthritis Activity: Per Instructions section Non-emergency contact: Surgeon Call non-emergency contact if: you have any medication questions, your pain is not controlled, you have a fever, your temperature is above 101, your wound has increased redness and your wound has increased drainage Follow-up/Referrals: Lily Dallas DO [Primary Care Provider] - Diet: Regular Addtl Attending Provider Instructions: ACTIVITY RECOMMENDATIONS: SELF CARE INSTRUCTIONS AFTER TOTAL SHOULDER ARTHROPLASTY A. You may do daily exercises as taught in physical therapy while in hospital. No lifting with the operative arm. Please schedule your outpatient physical therapy appointment to begin within 2-3 days after leaving the hospital. Specific restrictions will be written on your physical therapy prescription that is provided to you. B. You are to wear your sling/immobilizer at all times EXCEPT when performing your daily exercises, participating in physical therapy and for hygiene purposes. C. You may perform dry, daily dressing changes. Please keep your incision covered. You may shower 48 hours after surgery. Do not apply soap or any ointment/lotions directly over incision. Do not soak incision in bath tub/swimming pool. D. You may use ice as needed to operative shoulder. SPECIAL CARE INSTRUCTIONS: VERY IMPORTANT TO READ AND REVIEW A. There are a few signs you need to watch for after you are home. Call [facility] at [phone] if you experience any of the followin. Increased severe shoulder pain. Some pain is expected especially when you exercise. 2. Increased swelling in you shoulder or arm; pain or swelling in either upper extremity. 3. Any fluid drainage from the incision. 4. Shortness of breath or chest pain. B. Please call [facility] at [phone] if you have any questions or concerns about your operation or recovery. C. Call your physician if: 1. Temperature is greater than 101 degrees (F). 2. Pain is not relieved by prescribed pain medications. 3. Increase drainage or redness from incision. 4. Unanswered questions or concerns. FOLLOW UP VISIT: Please call [facility] at [phone] to schedule a follow up appointment with Dr. Amezquita or his PA in 12-14 days from your surgery date. Stand-Alone Forms: [facility] authorGEN, Smoking Cessation Medications and DC Order Prescriptions: New acetaminophen [Tylenol Extra Strength] 500 mg Tablet 1,000 mg PO Q8 Qty: 60 0RF oxycodone 5 mg Tablet 5 - 10 mg PO .Q4h-6h MDD 6 PRN (Reason: pain) Qty: 30 0RF Rx Instructions: Ongoing therapy, Dr. Amezquita supervising Continued atorvastatin [Lipitor] 20 mg Tablet 20 mg PO DAILY fexofenadine 180 mg Tablet 180 mg PO QAM levothyroxine 88 mcg Tablet 88 mcg PO QAM triamterene-hydrochlorothiazid [Maxzide-25mg] 37.5-25 mg Tablet 1 tab PO Q24H Rx Instructions: usually takes after lunch allopurinol 300 mg Tablet 300 mg PO HS lisinopril 40 mg Tablet 40 mg PO QPM omeprazole 20 mg Tablet,Delayed Release (Dr/Ec) 20 mg PO QAM bisoprolol fumarate 5 mg Tablet 5 mg PO QAM cetirizine [Zyrtec] 10 mg Tablet 10 mg PO HS aspirin [Enteric Coated Aspirin] 81 mg Tablet,Delayed Release (Dr/Ec) 81 mg PO HS magnesium oxide 400 mg magnesium Tablet 400 mg PO QAM clobetasol 0.05 % Cream 1 applic TOPICAL DAILY PRN (Reason: Other) Rx Instructions: psoriasis triamcinolone acetonide [Triderm] 0.1 % Cream 1 applic TOPICAL DAILY Enstilar 0.005-0.064 % Foam 1 applic TOPICAL DAILY PRN (Reason: Other) Rx Instructions: psoriasis cyclosporine [Restasis] 0.05 % Dropperette 1 drp OPB BID hydrocortisone 2.5 % Ointment 1 applic TOPICAL BID PRN (Reason: psoriasis) Discontinued etodolac [Lodine] 400 mg Tablet 400 mg PO Q8H PRN (Reason: Pain) Discharge Orders: Discharge Order (Routine); Ordered 12/22/22 Ordered By: Terry Razo/Other Patient Handouts: Shoulder Replace Home Recovery, Shoulder Arthroscopy Dc, Pain Management Opioids Admission Data Admit Date/Time: 12/21/22 15:49 Attending Provider: Sean Amezquita Admit Provider: Sean Amezquita Primary Care Provider: Lily Dallas Other Providers: Black [place] Robert R. Other Interventions: Discharge Summary Assessment (RN) Last Done: 12/22/22 09:54
== END 2022-12-22 13:28 | disposition home or self-care (01) ==
LOC: 3E 10:43 → ASU 10:43